=== PATIENT | male | born 1985 | race Caucasian/White ===

== ENCOUNTER 2019-03-14 19:32 | Emergency (ER) | payer BC, OTHER ==
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
[2019-03-14] MEDS ORDERED: Hydromorphone 1 mg/ml Ampule IM ONE (20:54)
[2019-03-14] MEDS ORDERED: ZOFRAN ODT 4 MG PO ONE (20:55)
[2019-03-14] MEDS ORDERED: ZOFRAN ODT 4 MG ONE (20:58)
[2019-03-14] MEDS ORDERED: Hydromorphone 1 mg/ml Ampule ONE (20:58)
[2019-03-14] MEDS ORDERED: MOTRIN 600 MG PO ONE (20:59)
[2019-03-14] MEDS ORDERED: MOTRIN 600 MG ONE (20:59)
[2019-03-14] MEDS ORDERED: Cyclobenzaprine 10 MG PO ONE (20:59)
[2019-03-14] MEDS ORDERED: Cyclobenzaprine 10 MG ONE (20:59)
[2019-03-14 21:05] VITALS: O2SAT 97
[2019-03-14 21:08] VITALS: BP 109/79; PULSE 92
--- NOTE | 2019-03-15 08:49 | XRAY ---
Indication: Pain with range of motion following injury. Comparison: None 3 views of the left shoulder demonstrates minimal AC degenerative arthropathy. No other bony, articular, or soft tissue abnormalities.
== END 2019-03-14 21:12 | disposition home or self-care (01) ==
LOC: ED 19:32
DX: S46.912A Strain of unspecified muscle, fascia and tendon at shoulder and upper arm level, left arm, initial encounter (principal); X50.0XXA Overexertion from strenuous movement or load, initial encounter
CPT/HCPCS: 73030; 99284; J1170; Q0162; A9270-GY

== ENCOUNTER 2021-11-25 17:24 | Emergency (ER) | payer OTHER ==
--- NOTE | 2021-11-25 17:39 | ERPHSYRPT ---
- History of Present Illness Time Seen by Provider: 11/25/21 17:38 Source: patient Exam Limitations: no limitations Patient Subjective Stated Complaint: Pt states "I was at work and I hit my head on an airconditioning unit." Triage Nursing Assessment: Pt presented alert and oriented X 3, skin pwd. Pt ambulates with an upright steady gait, able to speak in clear full sentences pt in no apparent respiratory distress. Pt resting comfortably on the cot. 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 He immediately felt headache pain and his neck popped as well. Following that he became dizzy and lightheaded and he has mild neck pain. He did not lose consciousness. His employer made him come into the emergency department for evaluation. His dizziness and lightheadedness have subsided. He still has some mild neck pain. He has no visual changes. Occurred: hours ago (1.5) Severity: mild (Moderate) Head Injury Location: occipital Method of Injury: direct blow Loss of Consciousness: no loss of consciousness Associated Symptoms: headaches, other (Neck pain, lightheadedness and dizziness) Allergies/Adverse Reactions: tramadol Adverse Reaction (Verified 03/14/19 19:46) Hives Home Medications: Fluticasone/Vilanterol [Breo Ellipta 100-25 Mcg INH] 1 each IH DAILY 11/25/21 [History] Hx Tetanus, Diphtheria Vaccination/Date Given: Yes Hx Influenza Vaccination/Date Given: Yes Hx Pneumococcal Vaccination/Date Given: No Immunizations Up to Date: Yes Travel Risk - International Travel Have you traveled outside of the country in past 3 weeks: No - Coronavirus Screening Are you exhibiting any of the following symptoms?: No Close contact with a COVID-19 positive Pt in past 14-21 Days: No - Vaccine Status Have you recieved a Covid-19 vaccination: Yes Allopathic Doctor: Unknown - Vaccination Dates Dates if Unknown: 2020 - Review of Systems Constitutional: No Symptoms Eyes: No Symptoms Ears, Nose, & Throat: No Symptoms Respiratory: No Symptoms Cardiac: No Symptoms Abdominal/Gastrointestinal: No Symptoms Genitourinary Symptoms: No Symptoms Musculoskeletal: Neck Pain Skin: No Symptoms Neurological: Dizziness, Headache Psychological: No Symptoms Endocrine: No Symptoms Hematologic/Lymphatic: No Symptoms Immunological/Allergic: No Symptoms All Other Systems: Reviewed and Negative - Past Medical History Pertinent Past Medical History: Yes Neurological History: No Pertinent History ENT History: No Pertinent History Cardiac History: No Pertinent History Respiratory History: No Pertinent History Endocrine Medical History: No Pertinent History Musculoskeletal History: No Pertinent History GI Medical History: No Pertinent History History: No Pertinent History Psycho-Social History: No Pertinent History Male Reproductive Disorders: No Pertinent History Other Medical History: dislocated both knees, torn rt rotator cuff, fx rt pinky finger - Past Surgical History Past Surgical History: Yes Neuro Surgical History: No Pertinent History Cardiac: No Pertinent History Respiratory: No Pertinent History Gastrointestinal: No Pertinent History Genitourinary: No Pertinent History Musculoskeletal: No Pertinent History Male Surgical History: No Pertinent History - Social History Smoking Status: Never smoker Exposure to second hand smoke: Yes Drug Use: none Patient Lives Alone: Yes - Nursing Vital Signs Nursing Vital Signs: Initial Vital Signs Temperature 97.2 F 11/25/21 17:28 Pulse Rate 85 11/25/21 17:28 Respiratory Rate 18 11/25/21 17:28 Blood Pressure 157/106 11/25/21 17:28 O2 Sat by Pulse Oximetry 97 11/25/21 17:28 Pain Scale Pain Intensity 0 - Aicha Coma Score Best Eye Response (Aicha): (4) open spontaneously Best Verbal Response (Harrison): (5) oriented Best Motor Response (Aicha): (6) obeys commands Aicha Total: 15 - Physical Exam General Appearance: no apparent distress, alert, anxiety Head Injury: no evidence of injury Eye Exam: bilateral eye: normal inspection, PERRL, EOMI ENT Exam: airway nml, nml ext.inspection Neck Exam: supple, trachea midline, full range of motion, normal alignment, normal inspection, muscle spasm Cardiovascular/Respiratory Exam: chest non-tender, no respiratory distress Gastrointestinal/Abdominal Exam: non tender Rectal Exam: not done Back Exam: normal inspection, normal range of motion, No CVA tenderness, No vertebral tenderness Extremity Exam: non-tender, normal range of motion, normal inspection Mental Status Exam: alert, oriented x 3, cooperative application integration architect Exam: normal hearing, normal speech, PERRL Coordination/Gait Exam: normal finger to nose, normal gait, normal cerebellar function Motor/Sensory Exam: no motor deficit, no sensory deficit Skin Exam: normal color, warm, dry Lymphatic Exam: No adenopathy SpO2 Interpretation: normal SpO2: 97 O2 Delivery: Room Air - Course Nursing assessment & vital signs reviewed: Yes Ordered Tests: Active Orders 24 hr Category Date Time Status CERVICAL SPINE WO CONTRAST [CT] Stat Exams 11/25/21 18:21 Taken HEAD WITHOUT CONTRAST [CT] Stat Exams 11/25/21 17:39 Taken - Progress Progress: unchanged Progress Note: 11/25/21 19:01 CAT scan of the head without contrast shows no intracranial abnormality. CAT scan of the cervical spine without contrast shows no acute fracture or subluxation. Counseled pt/family regarding: diagnosis, need for follow-up, rad results - Departure Departure Disposition: Home Clinical Impression: Head injury, Neck muscle strain Condition: Stable Critical Care Time: No Referrals: DOCTOR,NO FAMILY [Primary Care Provider] - Follow up/PCP as directed Additional Instructions: May alternate ice and heat to the neck area 3 times a day for the next 48 hours. Take your muscle relaxant medication as prescribed. Use Tylenol and ibuprofen for additional pain control Prescriptions: Orphenadrine Citrate 100 mg [Norflex 100 MG Tablet] 100 mg PO BID #10 tab
[2021-11-25 18:34] VITALS: BP 148/92; PULSE 84
[2021-11-25 19:02] VITALS: O2SAT 97
--- NOTE | 2021-11-27 22:08 | XRAY ---
Exam: CT of the head without IV contrast from 11/25/2021. CTDI: 53.92 mGy Comparison: None. Indication: 36-year-old male fell suffering injury at work; hit top of head; complains of posterior neck pain. Technique: Non-IV contrast axial images were obtained through the brain. Reconstructed coronal and sagittal images were created and reviewed. Findings: The ventricles appear of normal size and configuration. No focal mass effect or midline shift is seen. No acute intracranial bleed or abnormal extra-axial fluid collection is seen. The morales matter-white matter junctions appear unremarkable. No low attenuation infarct is seen. The cortical sulci and basilar cisterns appear normal. The calvarium of the skull appears intact without fracture. The paranasal sinuses are remarkable for a small incidental calcified osteoma within the left ethmoid sinus. Otherwise, the visualized paranasal sinuses are clear without air-fluid levels. The mastoid air cells are clear without effusion. The middle ear cavities appear normal bilaterally. The orbits appear grossly unremarkable. Impression: 1. No acute intracranial bleed or other acute intracranial process is seen. 2. No skull fracture or other bone lesion within the calvarium is seen. 3. 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
--- NOTE | 2021-11-27 22:16 | XRAY ---
Exam: CT of the cervical spine without IV contrast from 11/25/2021. CTDI: 48.42 mGy Comparison: None. Indication: 36-year-old male fell suffering injury at work; struck top of head; complains of posterior neck pain. Technique: Non-IV contrast axial images were obtained through the cervical spine. Reconstructed coronal and sagittal images were created and reviewed. Findings: I see no acute cervical spine fracture, AP subluxation, or prevertebral soft tissue swelling. There is a normal appearance of C1-C2 on the coronal and sagittal images. I see minimal convexity of the lower cervical spine on the coronal images toward the left centered at C5-C6. This could be due to a problem with patient positioning, or some paravertebral muscular spasm on the right. The uncovertebral joints and facet joints appear unremarkable. The vertebral bodies are well-maintained. There is perhaps very early narrowing of the C5-C6 interspace height. Minimal anterior and posterior spurring is seen at C6. Some mild degenerative change of the preodontoid space is seen. No other focal bone lesion is seen. I see no obvious central canal stenosis or cervical disc herniation. No neural foraminal stenosis is seen. The thyroid gland appears grossly unremarkable. The visualized lung apices appear normal. Impression: 1. No acute cervical spine fracture, AP subluxation, or prevertebral soft tissue swelling is seen. 2. Minimal convexity of the lower cervical spine toward the left on the coronal images centered at C5-C6. This could be due to a problem with patient positioning or paravertebral muscle spasm on the right. Correlate clinically.
== END 2021-11-25 19:07 | disposition home or self-care (01) ==
LOC: ED 17:24
DX: S09.90XA Unspecified injury of head, initial encounter (principal); S16.1XXA Strain of muscle, fascia and tendon at neck level, initial encounter; W22.09XA Striking against other stationary object, initial encounter; Y92.149 Unspecified place in prison as the place of occurrence of the external cause; Y99.0 Civilian activity done for income or pay; R51.9 Headache, unspecified; Z79.899 Other long term (current) drug therapy
CPT/HCPCS: 70450; 72125; 99282